=== PATIENT | male | born 1985 | race Caucasian/White ===

== ENCOUNTER 2021-08-20 07:20 | Emergency (ER) | payer SELFPAY ==
[2021-08-20] MEDS ORDERED: Ketorolac 30 MG/ML SDV IM ONE (08:41)
== END 2021-08-20 09:53 | disposition home or self-care (01) ==
LOC: JD.ED 07:20
DX: M54.50 Low back pain, unspecified (principal)
CPT/HCPCS: 96372; 99283; J1885

== ENCOUNTER 2021-10-03 10:12 | Emergency (ER) | payer SELFPAY ==
[2021-10-03 11:18] LABS: CORONAVIRUS COVID-19 NAA POSITIVE (NEGATIVE)
== END 2021-10-03 12:13 | disposition home or self-care (01) ==
LOC: JD.ED 10:12
DX: U07.1 COVID-19 (principal); B34.9 Viral infection, unspecified; F17.210 Nicotine dependence, cigarettes, uncomplicated
CPT/HCPCS: 0240U; 99283

== ENCOUNTER 2021-10-07 10:15 | Emergency (ER) | payer SELFPAY ==
[2021-10-07] MEDS ORDERED: Ibuprofen 600 MG Tab PO ONE (13:16)
== END 2021-10-07 14:50 | disposition home or self-care (01) ==
LOC: JD.ED 10:15
DX: U07.1 COVID-19 (principal)
CPT/HCPCS: 71045; 99284; A9270; 99283

== ENCOUNTER 2022-10-15 12:54 | Emergency (ER) | payer BC ==
[2022-10-15] MEDS ORDERED: Proparacaine 0.5% Ophth Soln 15 ML Bottle EYEBOTH ONE (13:28)
[2022-10-15] MEDS ORDERED: Fluorescein 1 MG Ophth Strip EYEBOTH ONE (13:56)
== END 2022-10-15 14:33 | disposition home or self-care (01) ==
LOC: JD.ED 12:54
DX: H10.023 Other mucopurulent conjunctivitis, bilateral (principal); Z86.16 Personal history of COVID-19
CPT/HCPCS: 99282; 99283; J3490